=== PATIENT | male | born 1975 | race African-American/Black ===

== ENCOUNTER 2021-02-25 11:28 | Emergency (ER) | payer BC, SELFPAY ==
--- NOTE | ~2021-02-25 | XR_ITS ---
XR shoulder LT min 2V DATE: 02/25/2021 11:47 INDICATION: Left shoulder pain following fall TECHNIQUE: 4 views COMPARISON: None FINDINGS: There is degenerative change at the left acromioclavicular joint. No fracture, dislocation, periosteal reaction or bone destruction. No abnormal left shoulder soft tis bhupendra calcification. IMPRESSION: No fracture or dislocation Reviewed, dictated and finalized at location A. IMPRESSION: No fracture or dislocation
[2021-02-25 11:35] VITALS: BP 135/88; PULSE 61; RESP 18; TEMP 36.6; O2SAT 100
--- NOTE | 2021-02-25 12:09 | ED.GENADULT ---
HPI - General Adult General Chief complaint: Extremity Injury, Upper Stated complaint: FALL- L SHOULDER PAIN Time Seen by Provider: 02/25/21 11:33 Source: patient Mode of arrival: ambulatory Limitations: no limitations History of Present Illness HPI narrative: Patient presents with chief complaint of left shoulder pain for approximately 1 week since slipping in the bathtub and putting out his left hand to brace his fall. Patient states since he has noticed some pain with certain activities. Patient states he works in [employer] when he is lifting certain objects and he notices a lot of discomfort. Patient denies loss of sensation or strength. Patient denies any other injuries. Patient states the he has been taking some bare aspirin for the discomfort but denies any other medications or chronic medical conditions. Related Data Allergies Allergy/AdvReac Type Severity Reaction Status Date / Time No Known Allergies Allergy Verified 02/25/21 12:24 Review of Systems Review of Systems: Narrative: CONSTITUTIONAL: Denies fever, chills, or sweats. EYES: Denies visual changes, redness, or discharge. ENT: Denies rhinorrhea, congestion, sore throat, or otalgia. CARDIOVASCULAR: Denies chest pain, palpitations, or edema. RESPIRATORY: Denies cough or dyspnea. GASTROINTESTINAL: Denies abdominal pain, nausea, vomiting, or diarrhea. GENITOURINARY: Denies dysuria or hematuria. SKIN: Denies rash or itching. MUSCULOSKELETAL: Reports left shoulder pain denies back pain, joint pain, or myalgia. NEUROLOGIC: Denies headache, numbness, dizziness, or weakness. PSYCHIATRIC: Denies anxiety or depression. Exam Narrative: Exam Narrative: GENERAL: Well-appearing, well-nourished, and in no acute distress. HEAD: Normocephalic, atraumatic. EYES: PERRLA and EOMI. ENT: Nares clear, no rhinorrhea or epistaxis. Mucous membranes moist. Oropharynx without tonsillar hypertrophy exudate or other lesions. Bilateral TMs pearly martini nonbulging NECK: Supple. No adenopathy or masses. CHEST: Clear to auscultation. No respiratory distress. No wheezes rales or rhonchi HEART: Regular rate and rhythm. No murmur heard. Normal peripheral pulses. EXTREMITIES: Normal range of motion. Pain with abduction past 45 degrees in external rotation. Loss of strength not appreciated. No edema. No ecchymosis. SKIN: Warm, dry, no rash. NEURO: No focal deficits. Alert and oriented x3. PSYCH: Normal mood and affect. Course Vital Signs Vital signs: Vital Signs Temperature 97.8 F 02/25/21 11:35 Pulse Rate 61 02/25/21 11:35 Respiratory Rate 18 02/25/21 11:35 Blood Pressure 135/88 02/25/21 11:35 Pulse Oximetry 100 02/25/21 11:35 Temperature 97.8 F 02/25/21 11:35 Pulse Rate 61 02/25/21 11:35 Respiratory Rate 18 02/25/21 11:35 Blood Pressure 135/88 02/25/21 11:35 Pulse Oximetry 100 02/25/21 11:35 Medical Decision Making MDM Narrative Medical decision making narrative: Discussed with patient there is no signs of acute fracture. Discussed with patient that he likely has a sprain or strain of his rotator cuff. Discussed the need for follow-up with primary care dairy management specialist. Patient states that he is a so [place] Discussed avoiding excessive activity with the left arm and not lifting heavy objects. NSAIDs and muscle relaxants. Patient does not have any neurological deficits. Patient verbalized understand agreement plan denies any other questions or concerns. Differential Diagnosis Differential Diagnosis: Fracture, sprain, strain Vital Signs Vital Signs: Vital Signs Temperature 97.8 F 02/25/21 11:35 Pulse Rate 61 02/25/21 11:35 Respiratory Rate 18 02/25/21 11:35 Blood Pressure 135/88 02/25/21 11:35 Pulse Oximetry 100 02/25/21 11:35 Temperature 97.8 F 02/25/21 11:35 Pulse Rate 61 02/25/21 11:35 Respiratory Rate 18 02/25/21 11:35 Blood Pressure 135/
== END 2021-02-25 12:35 | disposition home or self-care (01) ==
PROVIDERS: Emergency Provider Family Medicine
DX: S43.402A Unspecified sprain of left shoulder joint, initial encounter (principal); W18.2XXA Fall in (into) shower or empty bathtub, initial encounter
CPT/HCPCS: 73030; 99283

== ENCOUNTER 2023-06-02 12:55 | Emergency (ER) | payer BC, SELFPAY ==
--- NOTE | ~2023-06-02 | XR_ITS ---
EXAMINATION: XR chest 2V DATE: 06/02/2023 14:16 INDICATION: Cough and shortness of breath. TECHNIQUE: Frontal and lateral views of the chest were obtained. COMPARISON: None. FINDINGS: The chest demonstrates clear lungs without pneumonia, pleural effusion, or pneumothorax. Th e heart size is normal. IMPRESSION: 1. No acute cardiopulmonary disease. Reviewed, dictated and finalized at location A.
[2023-06-02 12:59] VITALS: BP 141/83; PULSE 72; RESP 16; TEMP 36.5; O2SAT 98
[2023-06-02 13:35] VITALS: BP 124/89; PULSE 61; RESP 16; TEMP 36.9; O2SAT 98
--- NOTE | 2023-06-02 14:05 | ED.URI ---
HPI - URI/Sore Throat General Chief Complaint: Upper Respiratory Infection Stated Complaint: allergic reaction? congestion Time Seen by Provider: 06/02/23 13:45 History of Present Illness HPI Narrative: Patient is a 47-year-old male presenting with nasal congestion. Patient states that for the last 3 weeks he has had persistent thick nasal congestion associated with sinus pain. States that he was initially concerned for seasonal allergies so he has been using [id number] allergy medications without much improvement. States that he felt some chest tightness and has had a cough for the last couple of days. He denies headaches, fevers, shortness of breath, chest pain, abdominal pain, vomiting, leg swelling. Related Data Allergies Allergy/AdvReac Type Severity Reaction Status Date / Time No Known Allergies Allergy Verified 06/02/23 14:20 Review of Systems Review of Systems: All systems reviewed & are unremarkable except as noted in HPI and below Exam Narrative: GENERAL: Well-appearing, well-nourished, and in no acute distress. Pleasant and cooperative HEAD: Normocephalic, atraumatic. EYES: PERRLA and EOMI. ENT: + Nasal congestion; posterior pharynx without abnormalities NECK: Supple. CHEST: Clear to auscultation. No respiratory distress. HEART: Regular rate and rhythm ABDOMEN: Soft, nondistended EXTREMITIES: Normal range of motion. No edema. SKIN: Warm, dry, no rash. NEURO: No focal deficits. Alert and oriented x3. PSYCH: Normal mood and affect. Course Vital Signs Vital signs: Vital Signs Temperature 97.7 F 06/02/23 12:59 Pulse Rate 72 06/02/23 12:59 Respiratory Rate 16 06/02/23 12:59 Blood Pressure 141/83 H 06/02/23 12:59 Pulse Oximetry 98 06/02/23 12:59 Oxygen Delivery Room Air 06/02/23 12:59 Temperature 98.4 F 06/02/23 13:35 Pulse Rate 61 06/02/23 13:35 Respiratory Rate 16 06/02/23 13:35 Blood Pressure 124/89 06/02/23 13:35 Pulse Oximetry 98 06/02/23 13:35 Oxygen Delivery Room Air 06/02/23 14:15 MDM - URI/Sore Throat MDM Narrative Medical decision making narrative: Patient is a 47-year-old male presenting with 3 weeks of thick nasal congestion and sinus pressure. Vitals within normal limits. Exam remarkable for the above. Chest x-ray shows no acute abnormalities. Patient is negative for COVID, influenza, RSV. Given the 3+ weeks of his symptoms, we will cover him with Augmentin for greater than 10 days of sinusitis. We will also try some allergy meds. Appropriate return precautions given. Advise close PCP follow-up. Patient voiced understanding and is agreeable with plan. Discharged in stable condition. Differential Diagnosis Differential diagnosis: Likely upper respiratory infection, sinusitis and viral infection Medical Records Attestation: I reviewed the patient's medical records. Lab Data Attestation: I reviewed the patient's lab results. Labs: Lab Results 06/02/23 Range/Units 14:16 Influenza A (RT-PCR) Negative (Negative) Influenza B (RT-PCR) Negative (Negative) RSV (RT-PCR) Negative (Negative) SARS-CoV-2 RNA (RT-PCR) Negative (Negative) Imaging Data Radiologist's impression: ITS Impressions Chest X-Ray 06/02/23 14:19 IMPRESSION: 1. No acute cardiopulmonary disease. Critical Care Time Critical Care Time Critical Care Time: No Discharge Plan Discharge Clinical Impression: Sinusitis Patient Disposition: Home, Self-Care Condition: Stable Instructions: Antibiotic Form, Sinusitis (ED) Additional Instructions: Please complete the antibiotics as prescribed. Please use the allergy medicine as needed for congestion. Please follow-up closely with your PCP. If your symptoms worsen, you develop chest pain or shortness of breath, or other concerning symptoms arise, please return to the ER. Prescriptions: New amoxicillin-pot clavulanate 875-125 mg tablet 1 tablet PO Q12
[2023-06-02] MEDS: LORATADINE 10 MG TABLET PO (14:18)
[2023-06-02] MEDS: AMOXICILLIN/CLAVULANATE K 875-125 MG TAB 1 TABLET PO (14:18)
[2023-06-02 15:01] LABS: Influenza A QL RT-PCR Negative (Negative); Influenza B QL RT-PCR Negative (Negative); RSV RNA, RT-PCR Negative (Negative); SARS-CoV-2 RNA PCR Negative (Negative)
== END 2023-06-02 15:44 | disposition home or self-care (01) ==
PROVIDERS: Emergency Provider Emergency Medicine
DX: J32.9 Chronic sinusitis, unspecified (principal); Z20.822 Contact with and (suspected) exposure to COVID-19
CPT/HCPCS: 71046; 87637; 99283; A9270